=== PATIENT | female | born 1940 | race Caucasian/White ===

== ENCOUNTER 2019-07-12 21:04 | Inpatient (IN) | payer SELFPAY ==
--- NOTE | 2019-07-12 21:26 | Event Note ---
ED Screening Note Date of service: 07/12/19 Time: 21:22 ED Screening Note: This is a 79 y.o. F. that presents to the ER with dyspnea, nausea, and vomiting. Patient arrived from [place] 2 days ago. He granddaughter states she noticed patient acting differently 2 hours after arrival. This initial assessment/diagnostic orders/clinical plan/treatment(s) is/are subject to change based on patients health status, clinical progression and re- assessment by fellow clinical providers in the ED. Further treatment and workup at subsequent clinical providers discretion. Patient/guardian urged not to elope from the ED as their condition may be serious if not clinically assessed and managed. Initial orders include: Labs and CXR Placed on oxygen 2L
[2019-07-12 21:48] LABS: Basophils # (Auto) 0.1 K/mm3 (0.0-0.1); Basophils % (Auto) 2.5 % (0.0-1.8); Hematocrit 41.1 % (30.3-42.9); Hemoglobin 13.9 gm/dl (10.1-14.3); Lymphocytes # (Auto) 0.4 K/mm3 (1.2-5.4); Lymphocytes % (Auto) 9.6 % (13.4-35.0); Mean Corpuscular HGB Conc 34 % (30-34); Mean Corpuscular Volume 86 fl (79-97); Monocytes # (Auto) 0.3 K/mm3 (0.0-0.8); Monocytes % (Auto) 7.9 % (0.0-7.3); Platelet Count 100 K/mm3 (140-440); Red Blood Count 4.79 M/mm3 (3.65-5.03); Red Cell Distribution Width 14.2 % (13.2-15.2)
--- NOTE | 2019-07-12 22:49 | XRay Report ---
CHEST PA AND LATERAL VIEWS INDICATION: dyspnea. COMPARISON: None FINDINGS: Support devices: None Heart: Within normal limits Lungs/Pleura: Suboptimal inspiration. Bibasilar atelectasis but no convincing evidence of acute pulmo nary disease. There may be very minimal interstitial edema. IMPRESSION: 1. No definite acute disease. Signer Name: Tu Rosas MD Signed: 07/12/2019 10:44 PM Workstation Name: [id number]
[2019-07-12 23:24] LABS: Alanine Aminotransferase 27 units/L (7-56); Albumin 4.2 g/dL (3.9-5); BUN/Creatinine Ratio 20; Blood Urea Nitrogen 12 mg/dL (7-17); Calcium 8.6 mg/dL (8.4-10.2); Hemolysis Index 29
[2019-07-13] MEDS ORDERED: NACL 0.9% 500 ML 500 ML IV ONE (00:24)
[2019-07-13] MEDS ORDERED: NACL 0.9% 500 ML 500 ML ONE (00:26)
[2019-07-13] MEDS ORDERED: NACL 0.9% 1000 ML IV ONE (00:27)
--- NOTE | 2019-07-13 00:28 | Emergency Department Report ---
ED General Adult HPI - General Chief complaint: Dyspnea/Respdistress Stated complaint: HIGH BLOOD PRESSURE,SOB Time Seen by Provider: 07/12/19 21:22 Source: patient, family Mode of arrival: Wheelchair Limitations: No Limitations - History of Present Illness Initial comments: Mrs. Sargent is a 79 yo female with hx of HTN who presents with shortness of breath, nausea, chills for the past 2 days. She recently traveled from [facility] to visit her family. Her granddaughter provided additional history. At the airport as she experienced chills. She then developed shortness of breath and nausea. She also has mild lightheadedness. Blood pressure has been elevated at home. Her granddaughter is a premed student. Granddaughter has monitored vital sign at home. She took two doses of her BP medication today. Gradual onset of symptoms on Friday. Worse with exertion. Constant in nature. She does take an antihypertensive medication provided by her primary care physician in [place]. Denies neck pain. Denies chest pain. Denies abdominal pain. Denies headache. Denies visual disturbance. -: Gradual, days(s) (2) Severity scale (0 -10): 0 Consistency: constant Improves with: none Worsens with: none Associated Symptoms: other (chills lightheadedness malaise nausea) Treatments Prior to Arrival: other (blood pressure medication.) - Related Data Allergies Allergy/AdvReac Type Severity Reaction Status Date / Time No Known Allergies Allergy Verified 07/12/19 21:14 ED Review of Systems ROS: Stated complaint: HIGH BLOOD PRESSURE,SOB Other details as noted in HPI Comment: All other systems reviewed and negative Constitutional: chills, malaise Respiratory: shortness of breath. denies: cough Cardiovascular: denies: chest pain Gastrointestinal: nausea. 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 ED Physical Exam - General Limitations: No Limitations General appearance: alert, in distress (abdominal retractions and accessory muscle use) - Head Head exam: Present: atraumatic, normocephalic - Eye Eye exam: Present: normal appearance - ENT ENT exam: Present: mucous membranes moist - Neck Neck exam: Present: normal inspection, full ROM - Respiratory Respiratory exam: Present: respiratory distress, rales, accessory muscle use, decreased breath sounds, prolonged expiratory. Absent: rhonchi, stridor, chest wall tenderness - Cardiovascular Cardiovascular Exam: Present: regular rate, normal rhythm, normal heart sounds. Absent: systolic murmur, diastolic murmur, rubs, gallop - GI/Abdominal GI/Abdominal exam: Present: soft, normal bowel sounds. Absent: distended, tenderness, guarding, rebound - Extremities Exam Extremities exam: Present: normal inspection - Neurological Exam Neurological exam: Present: alert, oriented X3 - Psychiatric Psychiatric exam: Present: normal affect, normal mood - Skin Skin exam: Present: warm, dry, intact, normal color. Absent: rash ED Course Vital Signs 07/12/19 07/13/19 07/13/19 21:13 00:04 00:15 Temperature 99.9 F H Pulse Rate 97 H Respiratory 18 Rate Blood Pressure 66/33 Blood Pressure 152/93 [Right] O2 Sat by Pulse 88 92 90 Oximetry 07/13/19 07/13/19 07/13/19 00:18 00:30 00:33 Temperature Pulse Rate Respiratory Rate Blood Pressure 66/33 104/55 Blood Pressure 100/46 [Right] O2 Sat by Pulse 91 93 Oximetry 07/13/19 07/13/19 07/13/19 00:51 01:00 01:15 Temperature Pulse Rate 72 70 Respiratory 19 10 L Rate Blood Pressure 104/55 130/66 120/68 Blood Pressure [Right] O2 Sat by Pulse 93 95 98 Oximetry 07/13/19 07/13/19 01:30 01:45 Temperature Pulse Rate 67 65 Respiratory 11 L 14 Rate Blood Pressure 127/67 124/66 Blood Pressure [Right] O2 Sat by Pulse 98 97 Oximetry ED Medical Decision Making - Lab Data Result diagrams: 07/12/19 21:37 07/12/19 21:37 - EKG Data EKG shows normal: sinus rhythm, axis, intervals, QRS complexes, ST-T waves Rate: normal - EKG Data Interpretation: normal EKG - Medical Decision Making Mrs. Montes presents with nausea, shortness of breath and chills. Differential diagnosis includes pneumonia COPD, pulmonary embolism, CHF, interstitial lung disease, hypersensitivity pneumonitis (berman's lung) lung cancer. History of agricultural work. No obvious lung pathology on chest x-ray or CT angiogram of the chest. With low-grade temperature 99.9 Fahrenheit, possible atypical pneumonia. Due to hypoxia, and obvious work of breathing, will need further inpatient treatment and evaluation. Critical Care Time: Yes Critical care time in (mins) excluding proc time.: 40 Critical care attestation.: If time is entered above; I have spent that time in minutes in the direct care of this critically ill patient, excluding procedure time. 40 minutes of critical care time excluding procedures were used in the care of the patient. Patient required multiple assessments and interventions. I reviewed the electronic medical record. I spoke with consultants involved in the care of the patient. ED Disposition Clinical Impression: Acute respiratory failure with hypoxia, Atypical pneumonia Disposition: OP ADMIT IP TO THIS HOSP Is pt being admited?: Yes Does the pt Need Aspirin: No Condition: Stable
[2019-07-13] MEDS ORDERED: ROCEPHIN/NS 2 GM/100 ML 2 GM/100 ML BAG IV SCH (01:00)
--- NOTE | 2019-07-13 01:21 | Cat Scan Report ---
CT angio chest INDICATION / CLINICAL INFORMATION: hypoxia recent travel. TECHNIQUE: Precontrast bolus timing images were obtained followed by postcontrast axial and reformatted images. 3-plane MIP reconstructions were performed at an independent workstation by the technologist. All CT scans at this location are performed using CT dose reduction for ALARA by means of automated exposure control. COMPARISON: None available. FINDINGS: Pulmonary arterial enhancement is normal. No evidence of pulmonary embolus. No thoracic aortic dissection. No mediastinal abnormalities. No acute lung disease. View of skeletal structures show no acute bony abnormalities. Note is made of interbody fusion at T11-T12. IMPRESSION: 1. No evidence of pulmonary embolus or acute lung disease. Signer Name: Austen Otero MD Signed: 07/13/2019 1:16 AM Workstation Name: [id number]
[2019-07-13] MEDS ORDERED: SOLU-Medrol IV ONE (01:44)
[2019-07-13] MEDS ORDERED: DUONEB *Not for PRN Use IH ONE (01:44)
[2019-07-13] MEDS: ZITHROMAX 500 MG in NACL 0.9% 250ML 250 ML IV SCH (02:35)
[2019-07-13] MEDS ORDERED: SODIUM CHLORIDE FLUSH SYRINGE 10 ML IV PRN (03:39)
[2019-07-13] MEDS ORDERED: TYLENOL PO PRN (03:39)
[2019-07-13] MEDS ORDERED: ZOFRAN IV PRN (03:39)
--- NOTE | 2019-07-13 03:47 | History and Physical Report ---
History of Present Illness Date of examination: 07/13/19 History of present illness: 79 -year-old man with a history of hypertension comes emergency room with complaints of nausea vomiting, cough productive of white phlegm. Granddaughter bedside state that her blood pressures been running high, systolic in the 140s to 150s. He came from [place], No fever, chills eview Of Systems: Constitutional: no weight loss, fever, chills Ears, eyes, nose, mouth and throat: no nasal congestion, no nasal discharge, no sinus pressure, blurry vision, diplopia Neck: No neck pain or rigidity. Cardiovascular: No palpitations, chest pain Respiratory: No shortness of breath Gastrointestinal: No hematochezia, abdominal pain Genitourinary : no dysuria, frequency , hematuria Musculoskeletal: no muscle ache , joint pain Integumentary: no rash, no pruritis Neurological: no parathesias, focal weakness Endocrine: no cold or heat intolerance, no polyuria or polydipsia Hematologic/Lymphatic: no easy bruising, no easy bleeding, no gland swelling Allergic/Immunologic: no urticaria, no angioedema. PAST MEDICAL HISTORY:hypertension PAST SURGICAL HISTORY:c/Section FAMILY HISTORY:hypertension, diabetes SOCIAL HISTORY: Denies tobacco, drugs, alcohol Medications and Allergies Allergies Allergy/AdvReac Type Severity Reaction Status Date / Time No Known Allergies Allergy Verified 07/12/19 21:14 Active Meds: Active Medications Acetaminophen (Tylenol) 650 mg PO Q4H PRN PRN Reason: Pain MILD(1-3)/Fever >100.5/SEO Albuterol/Ipratropium (Duoneb *Not For Prn Use*) 1 ampul IH Q6HRT [facility] Enoxaparin Sodium (Lovenox) 30 mg SUB-Q QDAY [facility] Azithromycin 500 mg/ Sodium (Chloride) 250 mls @ 250 mls/hr IV Q24H [facility]ARY; Protocol Methylprednisolone Sodium Succinate (Solu-Medrol) 60 mg IV Q8HR [facility] Ondansetron HCl (Zofran) 4 mg IV Q8H PRN PRN Reason: Nausea And Vomiting Sodium Chloride (Sodium Chloride Flush Syringe 10 Ml) 10 ml IV BID [facility] Sodium Chloride (Sodium Chloride Flush Syringe 10 Ml) 10 ml IV PRN PRN PRN Reason: LINE FLUSH Exam - Constitutional Vitals: Temp Pulse Resp BP Pulse Ox 99.9 F H 65 14 124/66 97 07/12/19 21:13 07/13/19 01:45 07/13/19 01:45 07/13/19 01:45 07/13/19 01:45 Results - Labs CBC & Chem 7: 07/12/19 21:37 07/12/19 21:37 Labs: Abnormal lab results 07/12/19 07/12/19 Range/Units 21:37 21:37 WBC 4.3 L (4.5-11.0) K/mm3 Plt Count 100 L (140-440) K/mm3 Lymph % (Auto) 9.6 L (13.4-35.0) % Benzie % (Auto) 7.9 H (0.0-7.3) % Baso % (Auto) 2.5 H (0.0-1.8) % Lymph # 0.4 L (1.2-5.4) K/mm3 Seg Neutrophils % 80.0 H (40.0-70.0) % Sodium 131 L (137-145) mmol/L Chloride 93.0 L (98-107) mmol/L Creatinine 0.6 L (0.7-1.2) mg/dL Glucose 207 H (65-100) mg/dL AST 52 H (5-40) units/L Assessment and Plan Assessment Acute bronchitis Hypertension Plan Admit to medicine Start steroids, nebulizer treatments, azithromycin Continue appropriate outpatient medication DVT prophylaxis d/w granddaughter at bedside
[2019-07-13] MEDS ORDERED: SOLU-Medrol ONE ×2 (04:08→07:50)
[2019-07-13 08:04] LABS: Bacteria,Urine 1+ /HPF (Negative); Bilirubin,Urine NEG (Negative); Blood,Urine MOD (Negative); Color,Urine Straw (Yellow); Protein,Urine <15 mg/dL mg/dL (Negative); Urobilinogen,Urine < 2.0 mg/dL (<2.0)
[2019-07-13] MEDS: SOLU-Medrol IV SCH ×2 (08:05→15:26)
[2019-07-13] MEDS: DUONEB *Not for PRN Use IH SCH ×3 (09:26→21:46)
[2019-07-13] MEDS ORDERED: LOVENOX SUB-Q SCH (10:00)
[2019-07-13] MEDS: SODIUM CHLORIDE FLUSH SYRINGE 10 ML IV SCH (10:48)
[2019-07-13] MEDS: LOVENOX SUB-Q SCH (10:49)
[2019-07-14] MEDS: SOLU-Medrol IV SCH ×2 (00:14→09:12)
[2019-07-14] MEDS: ZITHROMAX 500 MG in NACL 0.9% 250ML 250 ML IV SCH (00:15)
[2019-07-14] MEDS: DUONEB *Not for PRN Use IH SCH ×3 (01:32→16:20)
[2019-07-14 05:39] LABS: Basophils % (Auto) 0.2 % (0.0-1.8); Eosinophils % (Auto) 0.1 % (0.0-4.3); Hematocrit 40.8 % (30.3-42.9); Hemoglobin 13.6 gm/dl (10.1-14.3); Lymphocytes # (Auto) 0.4 K/mm3 (1.2-5.4); Lymphocytes % (Auto) 15.1 % (13.4-35.0); Mean Corpuscular HGB Conc 34 % (30-34); Mean Corpuscular Volume 86 fl (79-97); Monocytes # (Auto) 0.4 K/mm3 (0.0-0.8); Monocytes % (Auto) 13.4 % (0.0-7.3); Red Blood Count 4.74 M/mm3 (3.65-5.03); Red Cell Distribution Width 14.4 % (13.2-15.2)
[2019-07-14 05:41] LABS: Platelet Count 50 K/mm3 (140-440)
[2019-07-14] MEDS: SODIUM CHLORIDE FLUSH SYRINGE 10 ML IV SCH (05:52)
[2019-07-14 06:06] LABS: BUN/Creatinine Ratio 22; Blood Urea Nitrogen 13 mg/dL (7-17); Hemolysis Index 2
--- NOTE | 2019-07-14 06:59 | Event Note ---
Date: 07/13/19 Admitted for acute bronchitis Symptomatically better No wheezing
[2019-07-14] MEDS: HumaLOG SUB-Q SCH ×2 (09:13→13:13)
[2019-07-14] MEDS: LOVENOX SUB-Q SCH (09:14)
--- NOTE | 2019-07-14 10:52 | Discharge Summary ---
Providers - Providers Date of Admission: 07/13/19 10:40 Attending physician: PIERCE STEIN MD Primary care physician: POPPY YE MD Hospitalization Condition: Stable Hospital course: 79-year-old woman who presents to the hospital with nausea vomiting and productive cough. Also noted to have elevated blood pressure, The patient presented from [place]. She was treated with steroids nebulizers and chest PT, CT angiogram chest showed no evidence of pulmonary embolus or acute lung disease. The patient was treated with supplemental oxygen, and was weaned off oxygen prior to discharge. - she will need to follow-up with pulmonology as an outpatient for formal pulmonary function tests Diagnosis Acute hypoxic respiratory failure Acute bronchitis, question if patient actually has COPD Disposition: - TO HOME OR SELFCARE Time spent for discharge: 35 minutes Core Measure Documentation - Palliative Care Palliative Care/ Comfort Measures: Not Applicable - Core Measures Any of the following diagnoses?: none Exam - Constitutional Vitals: Temp Pulse Resp BP Pulse Ox 97.3 F L 79 18 135/70 92 07/14/19 05:49 07/14/19 08:00 07/14/19 08:00 07/14/19 05:49 07/14/19 05:49 General appearance: Present: no acute distress, well-nourished - EENT Eyes: Present: PERRL ENT: hearing intact, clear oral mucosa - Neck Neck: Present: supple, normal ROM - Respiratory Respiratory effort: normal Respiratory: bilateral: CTA - Cardiovascular Heart Sounds: Present: S1 & S2. Absent: rub, click - Extremities Extremities: pulses symmetrical, No edema Peripheral Pulses: within normal limits - Abdominal General gastrointestinal: Present: soft, non-tender, non-distended, normal bowel sounds Female genitourinary: Present: normal - Integumentary Integumentary: Present: clear, warm, dry - Musculoskeletal Musculoskeletal: gait normal, strength equal bilaterally - Psychiatric Psychiatric: appropriate mood/affect, intact judgment & insight - Neurologic Neurologic: CNII-XII intact, moves all extremities Plan Follow up with: PRIMARY CARE, [Primary Care Provider] - 7 Days Prescriptions: Ipratropium/Albuterol Sulfate [Combivent Respimat] 1 spray IH QID #1 aer.w.adap Prednisone [predniSONE 10 mg (6-Day Pack, 21 Tabs)] 10 mg PO .TAPER #1 tab.ds.pk ALBUTEROL Inhaler (OR & NICU) [ProAir HFA Inhaler] 2 puff IH QID PRN #1 pump PRN Reason: Shortness Of Breath ALBUTEROL NEB's [Proventil 0.083% NEBS] 2.5 mg IH TID PRN #90 neb PRN Reason: Wheezing
[2019-07-14 13:11] VITALS: BP 127/70
== END 2019-07-14 16:40 | disposition home or self-care (01) | DRG 189 ==
LOC: ED 21:04 → 3A 07-13 04:45 → OBSVTOIN 07-13 10:40
PROVIDERS: ADMIT Internal Medicine; ATTEND Internal Medicine
DX: J96.01 Acute respiratory failure with hypoxia (principal); I10 Essential (primary) hypertension; J20.9 Acute bronchitis, unspecified; Z82.49 Family history of ischemic heart disease and other diseases of the circulatory system; Z83.3 Family history of diabetes mellitus
CPT/HCPCS: 36415; 71046; 71275; 80048; 80053; 81001; 82140; 82962; 83036; 83880; 84484; 85025; 87040; 93005; 93010; 94640; 94760; 96374; G0378; J0456; J0696; J1650; J1815; J2920; J2930; J7030; J7040; J7050; Q9967